=== PATIENT | male | born 1985 | race Two or more races ===

== ENCOUNTER 2023-09-26 12:09 | Emergency (ER) | payer OTHER ==
[~2023-09-26] VITALS: Ht 167.6 cm; Wt 81.8 kg
[2023-09-26 12:09] VITALS: BP 158/90; PULSE 112; RESP 16; O2SAT 98
[2023-09-26] MEDS: SODIUM CHLORIDE 0.9% 1,000 ML IV ONE (13:25)
== END 2023-09-26 15:06 | disposition left against medical advice (07) ==
LOC: ER 12:09 → EDBD 12:09 → ER 15:06
DX: F10.129 Alcohol abuse with intoxication, unspecified (principal); I10 Essential (primary) hypertension; Y90.0 Blood alcohol level of less than 20 mg/100 ml
CPT/HCPCS: 36415; 80320; 96360; 99283; J7030